=== PATIENT | male | born 1935 | race Caucasian/White ===

== ENCOUNTER 2018-04-04 03:06 | Emergency (ER) | payer MEDICARE ==
[~2018-04-04] VITALS: Ht 175.3 cm; Wt 72.6 kg
[~2018-04-04 03:06] MED LIST: AMLO-150 PO; METO50TA82 PO; WARF-36 PO; WARF7.5T PO
--- NOTE | 2018-04-04 03:30 | NUR ---
BLADDER SCANNER SHOWS >600 URINE IN THE BLADDER PT STATED UNABLE TO URINATE PEREZ WILL BE INSERTED
[2018-04-04] MEDS ORDERED: SOTA80TA PO (03:35)
[2018-04-04 03:37] LABS: BASOPHILS # (AUTO) 0.04 x10^3/uL (0-0.1); BASOPHILS % (AUTO) 0 % (0-1); EOSINOPHILS # (AUTO) 0.04 x10^3/uL (0-0.4); EOSINOPHILS % (AUTO) 0 % (1-7); LYMPHOCYTES # (AUTO) 1.46 x10^3/uL (1-3.4); LYMPHOCYTES % (AUTO) 13 % (22-44); MD NO; MEAN CORPUSCULAR HEMOGLOBIN 29.9 pg (27.5-34.5); MEAN CORPUSCULAR HGB CONC 34.3 g/dL (33.2-36.2); MEAN CORPUSCULAR VOLUME 87.2 fL (81-97); MEAN PLATELET VOLUME 6.5 fL (7.4-10.4); MONOCYTES # (AUTO) 0.64 x10^3/uL (0.2-0.8); MONOCYTES % (AUTO) 6 % (2-9); NEUTROPHILS # (AUTO) 8.73 x10^3/uL (1.8-6.8); NEUTROPHILS % (AUTO) 80 % (42-75); PLATELET COUNT 319 x10^3/uL (130-400); RED BLOOD COUNT 4.74 x10^6/uL (4.38-5.82); RED CELL DISTRIBUTION WIDTH 13.3 % (9.4-14.8)
[2018-04-04 03:48] LABS: ANION GAP 8 mmol/L (5-15); CALCIUM 9.2 mg/dL (8.5-10.1); CHLORIDE 103 mmol/L (98-107); CREATININE 1.14 mg/dL (0.7-1.3)
--- NOTE | 2018-04-04 04:09 | NUR ---
GIVEN LEG BAG AND INSTRUCTION FOR CHANGING PT DEMONSTRATED HOW TO CHANGE THE BAG AT DAY AND NIGHT EMPTIED URINE FROM THE BIG BAG
--- NOTE | 2018-04-04 04:13 | NUR ---
BP WAS DROPPED AFTER INSERTED PEREZ AND DRAINED ALL URINE
--- NOTE | 2018-04-04 04:40 | NUR ---
CHANGED LEG BAG D/T PT HAS TO WEAR PANTS GIVEN BIG BAG FOR NIGHT TIME CHANGING GIVEN FOLLOW UP WITH UROLOGIST APPOINT INFO PT WILL CALL FOR NEXT APPOINTMENT
[2018-04-04 04:50] VITALS: BP 123/71
== END 2018-04-04 04:51 | disposition home or self-care (01) ==
LOC: ED 04:50
DX: N40.1 Benign prostatic hyperplasia with lower urinary tract symptoms (principal); R33.8 Other retention of urine; I10 Essential (primary) hypertension; I48.92 Unspecified atrial flutter
CPT/HCPCS: 36415; 51702; 80048; 82040; 85025; 99284

== ENCOUNTER 2018-04-07 07:37 | Emergency (ER) | payer MEDICARE ==
[~2018-04-07] VITALS: Ht 175.3 cm; Wt 70.2 kg
[~2018-04-07 07:37] MED LIST changes: +SOTA80TA PO
[2018-04-07] MEDS ORDERED: MULT-717 PO (07:59)
[2018-04-07] MEDS ORDERED: OMEG1CAP23 PO (08:00)
[2018-04-07] MEDS ORDERED: GLUC-149 PO (08:01)
[2018-04-07 08:23] LABS: BASOPHILS # (AUTO) 0.03 x10^3/uL (0-0.1); BASOPHILS % (AUTO) 1 % (0-1); EOSINOPHILS # (AUTO) 0.23 x10^3/uL (0-0.4); EOSINOPHILS % (AUTO) 3 % (1-7); LYMPHOCYTES # (AUTO) 1.39 x10^3/uL (1-3.4); LYMPHOCYTES % (AUTO) 20 % (22-44); MD NO; MEAN CORPUSCULAR HEMOGLOBIN 29.1 pg (27.5-34.5); MEAN CORPUSCULAR HGB CONC 33.4 g/dL (33.2-36.2); MEAN CORPUSCULAR VOLUME 87.1 fL (81-97); MEAN PLATELET VOLUME 6.9 fL (7.4-10.4); MONOCYTES # (AUTO) 0.63 x10^3/uL (0.2-0.8); MONOCYTES % (AUTO) 9 % (2-9); NEUTROPHILS # (AUTO) 4.65 x10^3/uL (1.8-6.8); NEUTROPHILS % (AUTO) 67 % (42-75); PLATELET COUNT 279 x10^3/uL (130-400); RED BLOOD COUNT 4.66 x10^6/uL (4.38-5.82); RED CELL DISTRIBUTION WIDTH 13.5 % (9.4-14.8)
[2018-04-07 08:35] LABS: ALBUMIN 3.5 g/dL (3.4-5.0); ANION GAP 6 mmol/L (5-15); CHLORIDE 107 mmol/L (98-107); CREATININE 1.02 mg/dL (0.7-1.3)
[2018-04-07 08:42] LABS: HEMOGRAM NOTE RECHECKED
--- NOTE | 2018-04-07 09:07 | NUR ---
URINE WALKED TO LAB. TOLD DR. GALLEGOS THAT I IRRIGATED BLADDER WITH 240MLS OF NS. DR. GALLEGOS WANTS TO IRRIGATE WITH 1 LITER. WILL CONTINUE TO IRRIGATE.
[2018-04-07 09:52] LABS: CULTURE INDICATED? NO; MICROSCOPIC INDICATED
[2018-04-07 10:16] LABS: INTERNATIONAL NORMALIZED RATIO 2.42 (0.93-1.1); PROTHROMBIN TIME 24.8 Seconds (9.6-11.5)
[2018-04-07 11:27] VITALS: BP 168/79
--- NOTE | 2018-04-07 11:31 | NUR ---
KRISTIN RN ASSISTING PRIMARY RN BILL WITH DISCHARGE ONLY. DR. GALLEGOS HAS DISCUSSED POC WITH PT AND SPOUSE. PT AND SPOUSE GIVEN DISCHARGE INSTRUCTIONS, VERBALIZED UNDERSTANDING OF DISCHARGE INSTRUCTIONS AND PLAN OF CARE. PT AMBULATED TO CHECKOUT DESK WITH STEADY GAIT WITH SPOUSE. PEREZ REMAINS IN PLACE AT DISCHARGE PER DR. GALLEGOS, PT TO FOLLOW UP WITH UROLOGIST WEDNESDAY ALREADY SCHEDULED.
== END 2018-04-07 11:32 | disposition home or self-care (01) ==
LOC: ED 09:57
DX: R31.0 Gross hematuria (principal); Z79.01 Long term (current) use of anticoagulants; I48.92 Unspecified atrial flutter; I10 Essential (primary) hypertension
CPT/HCPCS: 36415; 80048; 81001; 82040; 85025; 85610; 99283

== ENCOUNTER 2018-04-10 06:58 | Emergency (ER) | payer MEDICARE ==
[~2018-04-10] VITALS: Ht 175.3 cm; Wt 69.9 kg
[~2018-04-10 06:58] MED LIST changes: +GLUC-149 PO; +MULT-717 PO; +OMEG1CAP23 PO
--- NOTE | 2018-04-10 07:30 | NUR ---
Pt to ER for hematuria & leaking around catheter since placement Tuesday 04/04. Has appt w/ urologist in 2 days. Does not feel he is retaining urine.
[2018-04-10 07:40] LABS: BASOPHILS # (AUTO) 0.07 x10^3/uL (0-0.1); BASOPHILS % (AUTO) 1 % (0-1); EOSINOPHILS # (AUTO) 0.28 x10^3/uL (0-0.4); EOSINOPHILS % (AUTO) 4 % (1-7); LYMPHOCYTES # (AUTO) 1.46 x10^3/uL (1-3.4); LYMPHOCYTES % (AUTO) 20 % (22-44); MD NO; MEAN CORPUSCULAR HEMOGLOBIN 29.1 pg (27.5-34.5); MEAN CORPUSCULAR HGB CONC 33.3 g/dL (33.2-36.2); MEAN CORPUSCULAR VOLUME 87.3 fL (81-97); MONOCYTES % (AUTO) 10 % (2-9); NEUTROPHILS # (AUTO) 4.67 x10^3/uL (1.8-6.8); NEUTROPHILS % (AUTO) 65 % (42-75); PLATELET COUNT 265 x10^3/uL (130-400); RED BLOOD COUNT 4.81 x10^6/uL (4.38-5.82); RED CELL DISTRIBUTION WIDTH 13.6 % (9.4-14.8)
[2018-04-10 07:49] LABS: INTERNATIONAL NORMALIZED RATIO 1.74 (0.93-1.1); PROTHROMBIN TIME 18.1 Seconds (9.6-11.5)
[2018-04-10 07:51] LABS: ALBUMIN 3.9 g/dL (3.4-5.0); ANION GAP 3 mmol/L (5-15); CALCIUM 9.1 mg/dL (8.5-10.1); CHLORIDE 107 mmol/L (98-107); CREATININE 1.09 mg/dL (0.7-1.3)
--- NOTE | 2018-04-10 07:57 | NUR ---
Pt's catheter flushed w/ approx 400cc of water. Aspirated one large clot but difficulty flushing remains. After discussion with ERP, POC to perform catheter exchange. Supplies ordered from central supply, pt & aware of POC.
--- NOTE | 2018-04-10 08:26 | NUR ---
Delay in pt care intervention due to central supply not sending ordered equipment, not answering multiple phone calls & not answering overhead hospital page. sonography technologist sent to central supply to locate kirkpatrick catheter.
[2018-04-10 09:08] VITALS: BP 178/70
--- NOTE | 2018-04-10 09:09 | NUR ---
Escobar catheter exchange completed. 16fr coude tip catheter re-inserted w/out difficulty. Blood clot was present on tip. Output 150cc blood-tinged urine output. New leg bag placed w/ teaching. Patient/Caregiver given discharge instructions and they have confirmed that they understand the instructions. Patient ambulatory with steady gait.
== END 2018-04-10 09:09 | disposition home or self-care (01) ==
LOC: ED 07:28
DX: R33.9 Retention of urine, unspecified (principal); T83.098D Other mechanical complication of other urinary catheter, subsequent encounter; I48.92 Unspecified atrial flutter; I10 Essential (primary) hypertension
CPT/HCPCS: 36415; 51702; 80048; 82040; 85025; 85610; 99283; 99284

== ENCOUNTER 2018-05-06 01:15 | Emergency (ER) | payer MEDICARE ==
[~2018-05-06] VITALS: Ht 175.3 cm; Wt 70.8 kg
[2018-05-06 01:17] VITALS: BP 179/95
[2018-05-06] MEDS ORDERED: LIDOCAINE 2%,20 ML JEL.PF.APP MM ONE (02:00)
[2018-05-06] MEDS ORDERED: LIDOCAINE 2%, 6 ML JEL.PF.APP MM ONE (02:30)
--- NOTE | 2018-05-06 02:40 | NUR ---
PT PEREZ PLACED WITH [address] RINALDI. PT TOLERATED PROCEDURE WELL.
--- NOTE | 2018-05-06 03:06 | NUR ---
PT D/C WITH D/C SUMMARY. ALL QUESTIONS ANSWERED. PT BEING DISCHARGED WITH INDWELLING URINARY CATHER. PT TO FOLLOW UP WITH UROLOGY IN THE MORNING. PT DENIES ANY OTHER NEEDS PERTAINING TO THIS VISIT. PT PROVIDED WITH URINARY BAG FOR LEG, ALONG WITH FULL SIZE URINARY BAG FOR BEDTIME USE.
== END 2018-05-06 03:27 | disposition home or self-care (01) ==
LOC: ED 01:34
DX: N40.1 Benign prostatic hyperplasia with lower urinary tract symptoms (principal); R33.9 Retention of urine, unspecified; I48.92 Unspecified atrial flutter; I10 Essential (primary) hypertension
CPT/HCPCS: 51702; 99284

== ENCOUNTER 2018-05-08 17:54 | Emergency (ER) | payer MEDICARE ==
[~2018-05-08] VITALS: Ht 175.3 cm; Wt 70.0 kg
[2018-05-08 18:06] VITALS: BP 139/81
[2018-05-08] MEDS ORDERED: CEFTRIAXONE 1,000 MG IM ONE (18:30)
[2018-05-08] MEDS ORDERED: CEFTRIAXONE 1,000 MG ONE (18:41)
[2018-05-08] MEDS ORDERED: LIDOCAINE-MPF 1%, 5ML ONE (18:41)
--- NOTE | 2018-05-08 18:50 | NUR ---
PEREZ HAND IRRIGATED. NO RESISTANCE OR PROBLEMS WITH DRAINAGE. PEREZ CLEANED PER POLICY. PT EDUCATED ON KEEPING CATHETER CLEAN. DR PRESTON NOTIFIED.
--- NOTE | 2018-05-08 19:00 | NUR ---
REPORT RECEIVED FROM JEISON URRUTIA.
--- NOTE | 2018-05-08 19:11 | NUR ---
PT GIAVEN DC INSTRUCTIONS. PT AMB TO DC WITH STEADY GAIT. NO ACUTE DISTRESS AT DC.
== END 2018-05-08 19:12 | disposition home or self-care (01) ==
LOC: ED 19:02
DX: N30.00 Acute cystitis without hematuria (principal); I48.92 Unspecified atrial flutter; I10 Essential (primary) hypertension
CPT/HCPCS: 96372; 99284; J0696

== ENCOUNTER 2018-05-10 06:46 | Emergency (ER) | payer MEDICARE ==
[~2018-05-10] VITALS: Ht 175.3 cm; Wt 70.2 kg
[2018-05-10 06:47] VITALS: BP 204/107
[2018-05-10] MEDS ORDERED: LOPERAMIDE 2 MG CAPSULE PO ONE (07:30)
[2018-05-10 07:47] LABS: BASOPHILS # (AUTO) 0.03 x10^3/uL (0-0.1); BASOPHILS % (AUTO) 1 % (0-1); EOSINOPHILS # (AUTO) 0.15 x10^3/uL (0-0.4); EOSINOPHILS % (AUTO) 2 % (1-7); LYMPHOCYTES # (AUTO) 1.23 x10^3/uL (1-3.4); LYMPHOCYTES % (AUTO) 16 % (22-44); MD NO; MEAN CORPUSCULAR HEMOGLOBIN 29.1 pg (27.5-34.5); MEAN CORPUSCULAR HGB CONC 33.4 g/dL (33.2-36.2); MEAN CORPUSCULAR VOLUME 87.1 fL (81-97); MEAN PLATELET VOLUME 7.1 fL (7.4-10.4); MONOCYTES # (AUTO) 0.53 x10^3/uL (0.2-0.8); MONOCYTES % (AUTO) 7 % (2-9); NEUTROPHILS # (AUTO) 5.72 x10^3/uL (1.8-6.8); NEUTROPHILS % (AUTO) 75 % (42-75); PLATELET COUNT 253 x10^3/uL (130-400); RED BLOOD COUNT 4.48 x10^6/uL (4.38-5.82); RED CELL DISTRIBUTION WIDTH 13.7 % (9.4-14.8)
[2018-05-10 07:52] LABS: ALBUMIN 3.9 g/dL (3.4-5.0); ANION GAP 8 mmol/L (5-15); CALCIUM 9.3 mg/dL (8.5-10.1); CHLORIDE 107 mmol/L (98-107); CREATININE 1.12 mg/dL (0.7-1.3)
[2018-05-10] MEDS ORDERED: LIDOCAINE 2%,20 ML JEL.PF.APP MM ONE (07:59)
--- NOTE | 2018-05-10 09:03 | NUR ---
REPORT FROM GHADA MITTAL.
--- NOTE | 2018-05-10 09:20 | NUR ---
PT OUT OF ROOM REQUESTING D/C PAPERWORK. PT STATES HE WILL WAIT AT D/C FOR PAPERWORK. REJI AWARE.
--- NOTE | 2018-05-10 09:34 | NUR ---
PT GIVEN DC PAPERWORK. PT VERBALIZED UNDERSTANDING. 5 RIGHTS VERIFIED PRIOR. 3P'S ADDRESSED.
== END 2018-05-10 09:50 | disposition home or self-care (01) ==
LOC: ED 07:44
DX: N40.1 Benign prostatic hyperplasia with lower urinary tract symptoms (principal); R33.8 Other retention of urine; I48.92 Unspecified atrial flutter; I10 Essential (primary) hypertension
CPT/HCPCS: 36415; 51702; 80048; 82040; 85025; 99284

== ENCOUNTER → 2020-04-12 | Outpatient (CLI) | payer MEDICARE ==
[~2020-04-12] MED LIST changes: +ATEN50TA41 PO; +DRON400T PO; +ENOX80SY4 SQ; +FINA5TAB4 PO; +OMNIPAQUE 350 MG/ML, 100ML BOTTLE ONE; +TAMS-11 PO
== END | disposition home or self-care (01) ==
LOC: CFH 15:02
PROVIDERS: ATTEND Surgery
DX: I71.2 Thoracic aortic aneurysm, without rupture (principal); I70.0 Atherosclerosis of aorta; J98.4 Other disorders of lung; I65.22 Occlusion and stenosis of left carotid artery; I65.21 Occlusion and stenosis of right carotid artery; Z86.73 Personal history of transient ischemic attack (TIA), and cerebral infarction without residual deficits; Z95.2 Presence of prosthetic heart valve
CPT/HCPCS: 71275; 82565; Q9967

== ENCOUNTER → 2020-04-22 | Outpatient (CLI) | payer MEDICARE ==
[~2020-04-22] MED LIST changes: +AMIO100T4 PO; +AMLO-211 PO; +ATEN25TA PO; +ENOX60SY4 SC; -OMNIPAQUE 350 MG/ML, 100ML BOTTLE ONE; +WARF7.5T46 PO
[2020-04-22 12:13] LABS: BASOPHILS % (AUTO) 1 % (0-1); EOSINOPHILS % (AUTO) 1 % (1-7); LYMPHOCYTES % (AUTO) 21 % (22-44); MEAN CORPUSCULAR HEMOGLOBIN 29.8 pg (27.5-34.5); MEAN CORPUSCULAR HGB CONC 33.9 g/dL (33.2-36.2); MEAN PLATELET VOLUME 7.3 fL (7.4-10.4); MONOCYTES % (AUTO) 7 % (2-9); NEUTROPHILS % (AUTO) 69 % (42-75); PLATELET COUNT 187 x10^3/uL (130-400); RED BLOOD COUNT 4.71 x10^6/uL (4.38-5.82); RED CELL DISTRIBUTION WIDTH 14.3 % (9.4-14.8)
[2020-04-22 12:14] LABS: MD NO
[2020-04-22 12:16] LABS: ALBUMIN 4.3 g/dL (3.4-5.0); CALCIUM 9.4 mg/dL (8.5-10.1); CHLORIDE 109 mmol/L (98-107)
[2020-04-22 12:19] LABS: ALANINE AMINOTRANSFERASE 28 U/L (12-78); ALKALINE PHOSPHATASE 97 U/L (45-117); BILIRUBIN,TOTAL 0.8 mg/dL (0.2-1.0); CREATININE 1.38 mg/dL (0.7-1.3); TOTAL PROTEIN 7.5 g/dL (6.4-8.2)
[2020-04-22 12:36] LABS: ANION GAP 3 mmol/L (5-15)
== END | disposition home or self-care (01) ==
LOC: STAR 10:41
PROVIDERS: ATTEND Surgery
DX: Z01.812 Encounter for preprocedural laboratory examination (principal); I44.7 Left bundle-branch block, unspecified; I48.91 Unspecified atrial fibrillation; Z20.822 Contact with and (suspected) exposure to COVID-19
CPT/HCPCS: 71046; 80053; 85025; 87635; 93005

== ENCOUNTER → 2020-04-22 | Outpatient (CLI) | payer MEDICARE | END | disposition home or self-care (01) | LOC: CVU 09:14 | PROVIDERS: ATTEND Surgery | DX: Z01.818 Encounter for other preprocedural examination (principal); I65.23 Occlusion and stenosis of bilateral carotid arteries; I08.1 Rheumatic disorders of both mitral and tricuspid valves; Z86.73 Personal history of transient ischemic attack (TIA), and cerebral infarction without residual deficits | CPT/HCPCS: 93306 ==

== ENCOUNTER 2020-04-27 09:48 | Inpatient (IN) | payer MEDICARE ==
[~2020-04-27] VITALS: Ht 175.3 cm; Wt 82.2 kg
[2020-04-27 10:13] VITALS: BP 159/89
[2020-04-27] MEDS ORDERED: OMNIPAQUE 350 MG/ML, 100ML BOTTLE ONE (10:40)
[2020-04-27] MEDS ORDERED: FENTANYL PF 100 MCG/2ML ONE ×3 (12:00→15:51)
[2020-04-27] MEDS ORDERED: PROTAMINE SULFATE 10 MG/ML, 5ML ONE (12:11)
[2020-04-27] MEDS ORDERED: THROMBIN 20,000 UNIT VIAL TP ONE (12:12)
[2020-04-27] MEDS ORDERED: HEPARIN 1,000 UNITS/ML, 10ML ONE (12:12)
[2020-04-27] MEDS ORDERED: PAPAVERINE 30 MG/ML, 2ML ONE (12:12)
[2020-04-27] MEDS ORDERED: LIDOCAINE 1%, 20ML ONE (12:12)
[2020-04-27] MEDS ORDERED: EPHEDRINE 50 MG/ML, 1ML ONE (12:32)
[2020-04-27] MEDS ORDERED: LIDOCAINE-MPF 2% ,5ML ONE (12:32)
[2020-04-27] MEDS ORDERED: PHENYLEPHRINE 10 MG/ML ONE (12:32)
[2020-04-27] MEDS ORDERED: DEXAMETHASONE 4 MG/ML, 5ML ONE (12:32)
[2020-04-27] MEDS ORDERED: SUGAMMADEX 200 MG/2 ML IVPush ONE (12:32)
[2020-04-27] MEDS ORDERED: MEPERIDINE/PF 25MG/0.5ML IVPush PRN (13:30)
[2020-04-27] MEDS ORDERED: OXYcodone 5 MG/5 ML ORAL.SOL UDC PO PRN (13:30)
[2020-04-27] MEDS ORDERED: ONDANSETRON 2MG/ML, 2ML IVPush PRN (13:30)
[2020-04-27] MEDS ORDERED: PROMETHAZINE 25 MG/ML, 1ML IVPush PRN (13:30)
[2020-04-27] MEDS ORDERED: HYDROcodone/APAP 7.5-325MG/15ML UDC PO PRN (13:30)
[2020-04-27] MEDS ORDERED: HYDROmorphone 1 MG/ML, 1ML INJ IVPush PRN (13:30)
[2020-04-27] MEDS ORDERED: ONDANSETRON 2MG/ML, 2ML ONE (13:59)
[2020-04-27] MEDS ORDERED: ROCURONIUM 10MG/ML,5ML ONE (13:59)
[2020-04-27] MEDS ORDERED: SUCCINYLCHOLINE 20 MG/ML, 10ML ONE (13:59)
[2020-04-27] MEDS ORDERED: NEOSTIGMINE 1 MG/ML, 10ML ONE (13:59)
[2020-04-27] MEDS ORDERED: CEFAZOLIN 1,000 MG ONE (13:59)
[2020-04-27] MEDS ORDERED: PROPOFOL 10 MG/ML, 20ML ONE (13:59)
[2020-04-27] MEDS ORDERED: GLYCOPYRROLATE 0.2MG/1ML, 5ML ONE (13:59)
[2020-04-27] MEDS ORDERED: PLEASE ENTER HEIGHT AND WEIGHT MC SCH (14:00)
[2020-04-27] MEDS ORDERED: LIDOCAINE 1%-EPI 1:100K, 20ML INFIL ONE (15:00)
[2020-04-27] MEDS ORDERED: EPINEPHRINE 1 MG/ML, 1ML ONE (15:03)
[2020-04-27] MEDS ORDERED: PHENYLEPHRINE 50 MG in SODIUM CHLORIDE 0.9% 245 ML IV PRN (15:30)
[2020-04-27] MEDS: FENTANYL PF 100 MCG/2ML IV PRN ×2 (15:50→16:10)
[2020-04-27] MEDS ORDERED: HYDROcodone/APAP 7.5-325MG/15ML UDC ONE (16:29)
[2020-04-27] MEDS ORDERED: ALBUMIN HUMAN 5% 500 ML ONE (17:11)
[2020-04-27] MEDS ORDERED: ALBUMIN HUMAN 5% 500 ML IV ONE (18:00)
[2020-04-27] MEDS ORDERED: HYDROcodone/APAP 5/325 TABLET PO PRN (20:00)
[2020-04-27] MEDS ORDERED: HEPARIN wt. based STROKE protocol MC SCH ×3 (20:00→20:23)
[2020-04-27] MEDS ORDERED: ONDANSETRON 2MG/ML, 2ML IV PRN (20:00)
[2020-04-27] MEDS: LACTATED RINGERS 1,000 ML IV SCH (21:06)
[2020-04-27] MEDS: HEPARIN 25,000 UNITS/250ML PMX 250 ML IV PRN (21:09)
[2020-04-27] MEDS: SODIUM CHLORIDE FLUSH 10ML SYR IVF SCH (21:17)
[2020-04-27 21:42] VITALS: BP 132/65
[2020-04-28] MEDS: LACTATED RINGERS 1,000 ML IV SCH ×2 (06:00→14:54)
[2020-04-28] MEDS: SODIUM CHLORIDE FLUSH 10ML SYR IVF SCH ×2 (07:47→21:00)
[2020-04-28] MEDS: ATENOLOL 25 MG TABLET PO SCH (11:00)
[2020-04-28] MEDS: AMLODIPINE 5 MG TABLET PO SCH (11:38)
[2020-04-28] MEDS: AMIODARONE 200 MG TABLET PO SCH (11:38)
[2020-04-28] MEDS: HEPARIN 25,000 UNITS/250ML PMX 250 ML IV PRN (21:53)
[2020-04-29] MEDS: LACTATED RINGERS 1,000 ML IV SCH ×2 (01:21→12:00)
[2020-04-29] MEDS: ATENOLOL 25 MG TABLET PO SCH (06:25)
[2020-04-29] MEDS: AMLODIPINE 5 MG TABLET PO SCH (07:58)
[2020-04-29] MEDS: SODIUM CHLORIDE FLUSH 10ML SYR IVF SCH (07:58)
[2020-04-29] MEDS: AMIODARONE 200 MG TABLET PO SCH (07:58)
== END 2020-04-29 12:54 | disposition home or self-care (01) | DRG 39 ==
LOC: 4NE 09:48 → CCU 19:04 → DCLOUNGE 04-29 12:48
PROVIDERS: ADMIT Surgery; ATTEND Surgery
PROC: 03CJ0ZZ Extirpation of Matter from Left Common Carotid Artery, Open Approach (ICD-10-PCS; 2020-04-27)
PROC: 03CL0ZZ Extirpation of Matter from Left Internal Carotid Artery, Open Approach (ICD-10-PCS; 2020-04-27)
PROC: 03UJ0KZ Supplement Left Common Carotid Artery with Nonautologous Tissue Substitute, Open Approach (ICD-10-PCS; 2020-04-27)
PROC: 03UL0KZ Supplement Left Internal Carotid Artery with Nonautologous Tissue Substitute, Open Approach (ICD-10-PCS; 2020-04-27)
PROC: 03CN0ZZ Extirpation of Matter from Left External Carotid Artery, Open Approach (ICD-10-PCS; principal; 2020-04-27 12:00)
DX: I65.23 Occlusion and stenosis of bilateral carotid arteries (principal); I48.91 Unspecified atrial fibrillation; Z79.899 Other long term (current) drug therapy; Z79.01 Long term (current) use of anticoagulants; Z91.010 Allergy to peanuts; Z91.013 Allergy to seafood; Z91.018 Allergy to other foods
CPT/HCPCS: 36415; 70496; 70498; 85347; 85520; 87081; 88300; G0378; J0171; J0690; J1100; J1644; J2405; J2704; J2710; J2720; J3010; P9045; Q9967; C1768; J0330; J2370; J2440; J7050; J7120

== ENCOUNTER 2020-11-19 13:44 | Outpatient (CLI) | payer MEDICARE ==
[~2020-11-19 13:44] MED LIST changes: -DRON400T PO; +DRON400T6 PO
[2020-11-19 14:17] LABS: INTERNATIONAL NORMALIZED RATIO 3.2 (0.93-1.1); PROTHROMBIN TIME 32.4 Seconds (9.6-11.5)
== END 2020-11-19 23:59 | disposition home or self-care (01) ==
LOC: LAB 13:44
DX: I48.0 Paroxysmal atrial fibrillation (principal)
CPT/HCPCS: 36415; 85610

== ENCOUNTER 2020-11-29 09:03 | Outpatient (CLI) | payer MEDICARE ==
[2020-11-29] MEDS ORDERED: ATOR40TA78 PO (09:56)
[2020-11-29] MEDS ORDERED: MULT-449 PO (09:56)
[2020-11-29] MEDS ORDERED: OMEG1CAP34 PO (09:56)
[2020-11-29 10:02] LABS: BASOPHILS % (AUTO) 1 % (0-1); EOSINOPHILS % (AUTO) 2 % (1-7); LYMPHOCYTES % (AUTO) 16 % (22-44); MEAN CORPUSCULAR HGB CONC 33.3 g/dL (33.2-36.2); MEAN PLATELET VOLUME 6.6 fL (7.4-10.4); MONOCYTES % (AUTO) 10 % (2-9); NEUTROPHILS % (AUTO) 71 % (42-75); PLATELET COUNT 227 x10^3/uL (130-400); RED BLOOD COUNT 4.63 x10^6/uL (4.38-5.82); RED CELL DISTRIBUTION WIDTH 16.2 % (9.4-14.8)
[2020-11-29 10:09] LABS: ALANINE AMINOTRANSFERASE 23 U/L (12-78); ALBUMIN 3.7 g/dL (3.4-5.0); ANION GAP 7 mmol/L (5-15); CALCIUM 9.1 mg/dL (8.5-10.1); CHLORIDE 107 mmol/L (98-107)
[2020-11-29 10:11] LABS: ALKALINE PHOSPHATASE 118 U/L (45-117); BILIRUBIN,TOTAL 0.7 mg/dL (0.2-1.0); TOTAL PROTEIN 7.6 g/dL (6.4-8.2)
== END 2020-11-29 23:59 | disposition home or self-care (01) ==
LOC: STAR 09:03
PROVIDERS: ATTEND Surgery
DX: Z01.812 Encounter for preprocedural laboratory examination (principal); Z20.822 Contact with and (suspected) exposure to COVID-19; I44.4 Left anterior fascicular block; I48.91 Unspecified atrial fibrillation; I25.2 Old myocardial infarction
CPT/HCPCS: 36415; 80053; 85025; 93005; U0003; U0005

== ENCOUNTER 2020-12-05 05:36 | Inpatient (IN) | payer MEDICARE ==
[~2020-12-05] VITALS: Ht 175.3 cm; Wt 67.4 kg
[~2020-12-05 05:36] MED LIST changes: +ATOR40TA78 PO; +MULT-449 PO; +OMEG1CAP34 PO
[2020-12-05] MEDS ORDERED: LACTATED RINGERS 1,000 ML IV SCH (06:30)
[2020-12-05] MEDS ORDERED: CHLORHEXIDINE 15 ML UDC PO ONE (06:30)
[2020-12-05] MEDS ORDERED: HEPARIN 1,000 UNITS/ML, 30ML ONE (06:57)
[2020-12-05] MEDS ORDERED: THROMBIN 20,000 UNIT VIAL TP ONE (06:57)
[2020-12-05] MEDS ORDERED: LIDOCAINE/PF 1%, 30ML ONE (06:57)
[2020-12-05] MEDS ORDERED: PROTAMINE SULFATE 10 MG/ML, 5ML ONE (06:57)
[2020-12-05] MEDS ORDERED: MIDAZOLAM 1 MG/ML, 2ML ONE (07:21)
[2020-12-05] MEDS ORDERED: FENTANYL PF 250 MCG/5ML ONE (07:21)
[2020-12-05] MEDS ORDERED: ACETAMINOPHEN 325 MG TABLET PO PRN (07:30)
[2020-12-05] MEDS ORDERED: HYDROmorphone 1 MG/ML, 1ML INJ IVPush PRN (07:30)
[2020-12-05] MEDS ORDERED: FENTANYL PF 100 MCG/2ML IV PRN (07:30)
[2020-12-05] MEDS ORDERED: DIAZEPAM 5 MG/ML, 2ML IVPush PRN (07:30)
[2020-12-05] MEDS ORDERED: ONDANSETRON 2MG/ML, 2ML IVPush PRN (07:30)
[2020-12-05] MEDS ORDERED: LABETALOL 5MG/ML, 20ML IV PRN (07:30)
[2020-12-05] MEDS ORDERED: hydrALAzine 20 MG/ML, 1ML IV PRN (07:30)
[2020-12-05] MEDS ORDERED: OXYcodone 5 MG/5 ML ORAL.SOL UDC PO PRN (07:30)
[2020-12-05] MEDS ORDERED: ASPIRIN 81 MG TABLET EC ONE (07:36)
[2020-12-05 07:37] LABS: INTERNATIONAL NORMALIZED RATIO 1.24 (0.93-1.1); PROTHROMBIN TIME 13.1 Seconds (9.6-11.5)
[2020-12-05] MEDS ORDERED: PROPOFOL 10 MG/ML, 20ML ONE (07:40)
[2020-12-05] MEDS ORDERED: CEFAZOLIN 1,000 MG ONE (07:40)
[2020-12-05] MEDS ORDERED: ROCURONIUM 10 MG/ML,10ML ONE (07:40)
[2020-12-05] MEDS ORDERED: ONDANSETRON 2MG/ML, 2ML ONE (07:40)
[2020-12-05] MEDS ORDERED: PHENYLEPHRINE 10 MG/ML ONE (07:40)
[2020-12-05] MEDS ORDERED: NEOSTIGMINE 1 MG/ML, 10ML ONE (07:40)
[2020-12-05] MEDS ORDERED: GLYCOPYRROLATE 0.2MG/1ML, 5ML ONE (07:40)
[2020-12-05] MEDS ORDERED: ASPIRIN 81 MG TABLET EC PO SCH (08:00)
[2020-12-05] MEDS ORDERED: BUPIVACAINE/PF 0.25% ONE (09:23)
[2020-12-05] MEDS ORDERED: EPINEPHRINE 1 MG/ML, 1ML ONE (09:23)
[2020-12-05] MEDS ORDERED: ACETAMINOPHEN 650 MG/20.3 ML UDC ONE (10:06)
[2020-12-05] MEDS ORDERED: FENTANYL PF 100 MCG/2ML ONE (10:06)
[2020-12-05] MEDS: LACTATED RINGERS 1,000 ML IV SCH (14:30)
[2020-12-05] MEDS ORDERED: HYDROcodone/APAP 5/325 TABLET PO PRN (14:30)
[2020-12-05] MEDS ORDERED: ONDANSETRON 2MG/ML, 2ML IV PRN (14:30)
[2020-12-05 18:49] VITALS: BP 125/65
[2020-12-05] MEDS: TAMSULOSIN 0.4 MG CAP.ER.24H PO SCH (19:33)
[2020-12-05] MEDS ORDERED: ATORVASTATIN 40 MG TABLET PO SCH (21:00)
[2020-12-05] MEDS: ENOXAPARIN 60 MG/0.6 ML SQ SCH (22:17)
[2020-12-05] MEDS: SODIUM CHLORIDE FLUSH 10ML SYR IVF SCH (22:36)
[2020-12-06 00:06] VITALS: BP 131/73
[2020-12-06] MEDS: LACTATED RINGERS 1,000 ML IV SCH (00:30)
[2020-12-06 03:32] VITALS: BP 127/69
[2020-12-06] MEDS ORDERED: ATENOLOL 25 MG TABLET PO SCH (06:00)
[2020-12-06 07:12] VITALS: BP 129/71
[2020-12-06] MEDS ORDERED: MULTIVITAMIN 1 TABLET PO SCH (09:00)
[2020-12-06] MEDS ORDERED: AMLODIPINE 10 MG TAB PO SCH (09:00)
[2020-12-06] MEDS ORDERED: AMIODARONE 200 MG TABLET PO SCH (09:00)
[2020-12-06] MEDS ORDERED: OMEGA-3/FISH OIL CAPSULE PO SCH (09:00)
[2020-12-06] MEDS ORDERED: ASPIRIN 81 MG TABLET CHEW PO SCH (09:00)
[2020-12-06] MEDS: TAMSULOSIN 0.4 MG CAP.ER.24H PO SCH (09:18)
[2020-12-06] MEDS: SODIUM CHLORIDE FLUSH 10ML SYR IVF SCH (09:20)
[2020-12-06] MEDS ORDERED: HYDR-2214 PO (10:24)
[2020-12-06] MEDS: ENOXAPARIN 60 MG/0.6 ML SQ SCH (11:00)
[2020-12-06 13:08] VITALS: BP 91/54
== END 2020-12-06 17:57 | disposition home or self-care (01) | DRG 39 ==
LOC: ORIP 05:36 → 4NE 13:20
PROVIDERS: ADMIT Surgery; ATTEND Surgery
PROC: 03CK0ZZ Extirpation of Matter from Right Internal Carotid Artery, Open Approach (ICD-10-PCS; principal; 2020-12-06)
PROC: 03UK0KZ Supplement Right Internal Carotid Artery with Nonautologous Tissue Substitute, Open Approach (ICD-10-PCS; 2020-12-06)
DX: I65.21 Occlusion and stenosis of right carotid artery (principal); I10 Essential (primary) hypertension; I48.91 Unspecified atrial fibrillation; R33.9 Retention of urine, unspecified
CPT/HCPCS: 36415; 71045; 85347; 85610; 85730; 86850; 86900; 88304; 88311; G0378; J0171; J0690; J1644; J1650; J2250; J2405; J2704; J2710; J2720; J3010; C1768; J2370; J7120